=== PATIENT | male | born 1955 | race Caucasian/White ===

== ENCOUNTER 2018-09-21 17:01 | Emergency (ER) | payer SELFPAY ==
--- NOTE | 2018-09-21 17:11 | PDOC ---
Rapid Medical Evaluation Time Seen by Provider: 09/21/18 17:09 Medical Evaluation: Allergies Allergy/AdvReac Type Severity Reaction Status Date / Time No Known Allergies Allergy Verified 09/21/18 17:09 09/21/18 17:09 Pt presents to the ED for L hand pain. Pt states he fell on his L hand today and now it hurts to move it. Pt is L hand dominant Exam: Swelling to the top of the L hand Orders: x-ray Pt to proceed to ED for further evaluation Discharge Disposition - Diagnosis Hand pain, left - Referrals - Patient Instructions - Post Discharge Activity
[2018-09-21 17:12] VITALS: BP 133/70; PULSE 75; TEMP 99; BMI 26.1
--- NOTE | 2018-09-21 18:30 | PDOC ---
History of Present Illness - General Chief Complaint: Injury Stated Complaint: FALL/INJURY Time Seen by Provider: 09/21/18 17:09 History Source: Patient Exam Limitations: No Limitations - History of Present Illness Initial Comments: CHIEF COMPLAINT: 62 y/o male c/o left hand pain and falling onto hand today. HISTORY OF PRESENT ILLNESS: The patient denies numbness/tingling. Vital signs on arrival are within normal limits. REVIEW OF SYSTEMS: GENERAL/CONSTITUTIONAL: No fever/chills. No weakness. No weight change. MUSCULOSKELETAL: +left hand pain. No neck or back pain. SKIN: No rash or easy bruising. NEUROLOGIC: No headache, vertigo, loss of consciousness, or loss of sensation. PHYSICAL EXAM: VITAL_SIGNS: within normal limits GENERAL_APPEARANCE: alert, cooperative, no obvious discomfort. MENTAL_STATUS: speech clear, oriented X 3, responds appropriately to questions. NEURO: motor intact and sensory intact in injured extremity. EXTREMITIES: swelling and bulge to left dorsal hand, over 4th metacarpal that is TTP. SKIN: warm, dry, good color. Past History - Past Medical History Allergies/Adverse Reactions: Allergies Allergy/AdvReac Type Severity Reaction Status Date / Time No Known Allergies Allergy Verified 09/21/18 17:09 Home Medications: Ambulatory Orders NK [No Known Home Medication] 09/21/18 Anemia: No Asthma: No Cancer: No Cardiac Disorders: No CVA: No COPD: No CHF: No Dementia: No Diabetes: No GI Disorders: No Disorders: No HTN: No Hypercholesterolemia: No Liver Disease: No Seizures: No Thyroid Disease: No - Surgical History Abdominal Surgery: No Appendectomy: No Cardiac Surgery: No Cholecystectomy: No Lung Surgery: No Neurologic Surgery: No Orthopedic Surgery: No - Immunization History Immunization Up to Date: Yes - Suicide/Smoking/Psychosocial Hx Smoking History: Never smoked Have you smoked in the past 12 months: No Information on smoking cessation initiated: No Hx Alcohol Use: No Drug/Substance Use Hx: No Substance Use Type: None Hx Substance Use Treatment: No *Physical Exam - Vital Signs Last Vital Signs Temp Pulse Resp BP Pulse Ox 99.0 F 75 16 133/70 97 09/21/18 17:09 09/21/18 17:09 09/21/18 17:09 09/21/18 17:09 09/21/18 17:09 Procedures - Splinting Splint Location: Left: Finger Pre-Proc Neuro Vasc Exam: normal Hand-Made Type: orthoglass Splint Type: Yes: Ulnar (gutter) Post-Proc Neuro Vasc Exam: normal Barry Bandage: yes, 3" (2) Sling: No Complications: No Medical Decision Making - Medical Decision Making A/P: 62 y/o male with left hand pain after falling on it today. Plan is as follows: 1. Xray left hand. Xray left hand IMPRESSION: (wet read) Fracture of the proximal shaft of the 4th metacarpal. Splinted hand in ulnar gutter splint. Pt tolerated procedure well. Instructed him to call Dr. Bedolla on Monday to schedule follow up appointment, take Motrin for pain if needed. THe patient verbalizes understanding of all instructions, has no further questions and is awaiting discharge. *DC/Admit/Observation/Transfer Diagnosis at time of Disposition: Hand pain, left Fracture, metacarpal shaft Qualifiers: Encounter type: initial encounter Metacarpal bone: fourth Fracture type: closed Fracture alignment: nondisplaced Laterality: left Qualified Code(s): S62.355A - Nondisplaced fracture of shaft of fourth metacarpal bone, left hand, initial encounter for closed fracture - Discharge Dispostion Disposition: HOME Condition at time of disposition: Improved - Referrals Referrals: Tristan Torres MD [Primary Care Provider] - Andres Bedolla [Non Staff, Medical] - (Call Monday ) - Patient Instructions Printed Discharge Instructions: Hand Fracture Additional Instructions: Discharge Instructions: -You broke a bone in your hand -Please keep hand in splint until you follow up with an orthopedic doctor -Call Dr. Bedolla on Monday to schedule follow up appointment -You can take over the counter Ibuprofen for pain if needed Instrucciones de descarga: -Te rompiste un hueso en la mano. -Por favor, mantenga la mano en la frula hasta que oren un seguimiento con un mdico ortopdico. -Llame al Dr. Bedolla el tee para programar lu chetna de seguimiento. -Usted puede patel el contador Ibuprofeno para el dolor si es necesario - Post Discharge Activity
== END 2018-09-21 19:05 | disposition home or self-care (01) ==
LOC: JERFT 17:01
PROC: 2W3FX1Z Immobilization of Left Hand using Splint (ICD-10-PCS; principal; 2018-09-21)
DX: S62.355A Nondisplaced fracture of shaft of fourth metacarpal bone, left hand, initial encounter for closed fracture (principal); W18.39XA Other fall on same level, initial encounter; Y93.89 Activity, other specified; Y92.89 Other specified places as the place of occurrence of the external cause; Y99.8 Other external cause status
CPT/HCPCS: 73130-TC-LR-FY; 99282-25

== ENCOUNTER 2020-09-29 20:23 | Emergency (ER) | payer BC ==
[2020-09-29 20:36] VITALS: BMI 25.0
[2020-09-29 21:23] LABS: BASO % 0.2 % (0-2.0); EOS % 0.2 % (0-4.5); HEMATOCRIT 42.7 % (35.4-49); HEMOGLOBIN 14.5 GM/dL (11.7-16.9); MCH 30.9 pg (25.7-33.7); MCHC 33.9 g/dl (32.0-35.9); MEAN CELL VOLUME 91.2 fl (80-96); MEAN PLT VOLUME 10.5 fl (7.5-11.1); MONO % 10.4 % (3.8-10.2); NEUT % 72.2 % (42.8-82.8); PLATELET COUNT 214 K/MM3 (134-434); RBC 4.68 M/mm3 (4.00-5.60); RDW 13.6 % (11.9-15.9); WHITE BLOOD COUNT 15.7 K/mm3 (4.0-10.0)
[2020-09-29 21:30] LABS: INR 1.14 (0.83-1.09); PROTHROMBIN TIME (PATIENT) 13.7 SEC (9.7-13.0)
[2020-09-29 21:33] LABS: ACTIVATED PTT 25.7 SECONDS (25.2-36.5)
[2020-09-29 21:40] LABS: POTASSIUM 4.1 mmol/L (3.5-5.1)
[2020-09-29 21:42] LABS: BLOOD UREA NITROGEN 17.8 mg/dL (7-18); CALCIUM 9.5 mg/dL (8.5-10.1)
[2020-09-29 21:43] LABS: ALBUMIN 4.1 g/dl (3.4-5.0)
[2020-09-29 21:46] LABS: CREATININE 1.1 mg/dL (0.55-1.3)
[2020-09-29 21:47] LABS: BILIRUBIN,TOTAL 1.1 mg/dL (0.2-1)
[2020-09-29 21:48] LABS: TOT PROT 7.6 g/dl (6.4-8.2)
[2020-09-30 01:25] VITALS: BP 109/84; PULSE 79
[2020-09-30 01:28] VITALS: TEMP 98.4
== END 2020-09-30 01:35 | disposition short-term general hospital (02) ==
LOC: JER 20:23
DX: Z48.814 Encounter for surgical aftercare following surgery on the teeth or oral cavity (principal)
CPT/HCPCS: 36415; 80053; 85025; 85610; 85730; 86850; 86900; 86901; 99283-25